=== PATIENT | female | born 1990 | race Caucasian/White ===

== ENCOUNTER 2017-11-10 20:06 | Emergency (ER) | payer BC ==
[~2017-11-10] VITALS: Ht 154.9 cm; Wt 60.9 kg
[2017-11-10 20:10] VITALS: BP 117/73; TEMP 97
[2017-11-10 20:56] LABS: COLLECTION METHOD CLEAN CATCH
[2017-11-10 21:00] LABS: BASO % 0.1 % (0.0-2.0); EOS % 0.1 % (0-4.0); GRAN # 4.3 (1.4-6.5); GRAN % 54.4 % (42.2-75.2); HEMATOCRIT 29.2 % (37.0-47.0); HEMOGLOBIN 9.3 g/dl (12.5-16.0); LYMPH # 2.9 (1.2-3.4); LYMPH % 37.2 % (20.0-51.0); MEAN CELL VOLUME 60 fl (80.0-100.0); MEAN CORPUSCULAR HEMOGLOBIN 19 pg (27.0-31.0); MEAN CORPUSCULAR HGB CONC 32 g/dl (33.0-37.0); MONO # 0.6 (0.1-0.6); MONO % 8.1 % (1.7-9.3); PLATELET COUNT 208 K/mm3 (130-400); RED BLOOD COUNT 4.89 M/mm3 (4.10-5.30); REDCELL DISTRIBUTION WIDTH-CV 17.8 % (11.5-14.5)
[2017-11-10 21:05] LABS: MUCOUS Present /lpf; PH 6 (5-8); SQUAMOUS EPITHELIAL 0-2 /hpf; URINE APPEARANCE Clear; URINE BACTERIA None Seen /hpf; URINE BILIRUBIN Negative (NEGATIVE); URINE BLOOD Negative (NEGATIVE); URINE COLOR Yellow; URINE GLUCOSE Negative (NEGATIVE); URINE KETONE Negative (NEGATIVE); URINE LEUKOCYTE ESTERASE Negative (NEGATIVE); URINE NITRATE Negative (NEGATIVE); URINE PROTEIN(semi-quant) Negative (NEGATIVE); URINE RBC 0-2 /hpf; URINE UROBILINOGEN Negative (NEGATIVE)
[2017-11-10 21:10] LABS: ALBUMIN 3.9 gm/dL (3.5-5.0); BILIRUBIN,TOTAL 0.3 mg/dL (0.0-1.0); C-REACTIVE PROTEIN 1.7 mg/dL (0.0-0.9); CALCIUM 8.8 mg/dL (8.4-10.2); CREATININE, serum 0.61 mg/dL (0.52-1.25); POTASSIUM 4.1 mmol/L (3.4-5.0); TOTAL PROTEIN 7.1 gm/dL (6.4-8.2)
[2017-11-10 22:05] VITALS: PULSE 78
== END 2017-11-10 22:05 | disposition home or self-care (01) ==
LOC: COL.ER 20:06
PROVIDERS: Physician Assistant
DX: R10.33 Periumbilical pain (principal); D56.1 Beta thalassemia; D50.9 Iron deficiency anemia, unspecified; R19.7 Diarrhea, unspecified
CPT/HCPCS: J1170; J2405; J7030